=== PATIENT | female | born 1950 | race Caucasian/White ===

== ENCOUNTER → 2019-03-21 | Outpatient (CLI) | payer MEDICARE, OTHER | LOC: WI 13:29 | PROVIDERS: ATTEND Family Medicine | DX: Z12.31 Encounter for screening mammogram for malignant neoplasm of breast (principal) | CPT/HCPCS: 77063; 77067 ==

== ENCOUNTER → 2019-08-10 | Outpatient (CLI) | payer MEDICARE, OTHER ==
--- NOTE | 2019-08-10 14:19 | RADIOLOGY REPORT (SQ) ---
EXAM DESCRIPTION: SHOULDER LEFT 2 OR MORE VIEWS IMAGES COMPLETED DATE/TIME: 08/10/2019 2:08 pm REASON FOR STUDY: PAIN IN LEFT SHOULDER M25.512 PAIN IN LEFT SHOULDER COMPARISON: None. NUMBER OF VIEWS: Three views. TECHNIQUE: Internal rotation, external rotation, and Y view images acquired of the left shoulder. LIMITATIONS: None. FINDINGS: MINERALIZATION: Normal. BONES: No acute fracture. No worrisome bone lesions. JOINTS: No dislocation. VISUALIZED LUNGS AND RIBS: No pneumothorax. No rib fracture. SOFT TISSUES: No radiopaque foreign body. OTHER: No other significant finding. IMPRESSION: NEGATIVE STUDY OF THE LEFT SHOULDER. NO RADIOGRAPHIC EVIDENCE OF ACUTE INJURY. TECHNICAL DOCUMENTATION: JOB ID: [id number] [email or web address] All Rights Reserved Reading location - IP/workstation name: [email or web address]
== END ==
LOC: OD 13:54
PROVIDERS: ATTEND Family Medicine
DX: M25.512 Pain in left shoulder (principal)

== ENCOUNTER 2019-08-15 09:28 | Emergency (ER) | payer MEDICARE, OTHER ==
[2019-08-15 10:29] LABS: ABSOLUTE EOSINOPHILS # (AUTO) 0.3 10^3/uL (0.0-0.6); ABSOLUTE LYMPHOCYTES (AUTO) 1.4 10^3/uL (0.5-4.7); ABSOLUTE MONOCYTES (AUTO) 0.4 10^3/uL (0.1-1.4); ABSOLUTE NEUT (AUTO) 2.5 10^3/uL (1.7-8.2); BASOPHILS % (AUTO) 0.7 % (0-2); EOSINOPHILS % (AUTO) 5.6 % (0-6); HEMATOCRIT 39.1 % (36.0-47.0); HEMOGLOBIN 13.2 g/dL (12.0-15.5); MEAN CORPUSCULAR HEMOGLOBIN 29.5 pg (27.0-33.4); MEAN CORPUSCULAR HGB CONC 33.8 g/dL (32.0-36.0); MEAN CORPUSCULAR VOLUME 87 fl (80-97); MONOCYTES % (AUTO) 9.3 % (3-13); PLATELET COUNT 205 10^3/uL (150-450); RED BLOOD COUNT 4.49 10^6/uL (3.72-5.28); RED CELL DISTRIBUTION WIDTH 13.2 % (11.5-14.0); SEGMENTED NEUTROPHILS % (AUTO) 54.4 % (42-78); TOTAL CELLS COUNTED % (AUTO) 100 %; WHITE BLOOD COUNT 4.6 10^3/uL (4.0-10.5)
[2019-08-15 10:42] LABS: ALBUMIN 3.6 g/dL (3.5-5.0); ALKALINE PHOSPHATASE 148 U/L (38-126); ASPARTATE AMINO TRANSFERASE 36 U/L (14-36); BILIRUBIN,TOTAL 0.9 mg/dL (0.2-1.3); BLOOD UREA NITROGEN 10 mg/dL (7-20); CALCIUM 8.6 mg/dL (8.4-10.2); CHLORIDE 106 mmol/L (98-107); CREATINE KINASE 70 U/L (30-135); GLUCOSE 95 mg/dL (75-110); POTASSIUM 4.3 mmol/L (3.6-5.0); TOTAL PROTEIN 6.1 g/dL (6.3-8.2)
[2019-08-15 10:47] LABS: CARBON DIOXIDE 29 mmol/L (22-30)
[2019-08-15 10:48] LABS: ANION GAP 3 (5-19)
[2019-08-15 10:51] LABS: CREATINE KINASE MB 0.74 ng/mL (<4.55)
[2019-08-15 10:56] LABS: TROPONIN I < 0.012 ng/mL
--- NOTE | 2019-08-15 11:21 | ER Document Report ---
Entered by ETHEL DELATORRE SCRIBE 08/15/19 1021 Acting as scribe for:URIEL ARIZA MD ED General - General Chief Complaint: Chest Pain Stated Complaint: BACK PAIN Time Seen by Provider: 08/15/19 10:04 Primary Care Provider: ASHLEIGH MARCIAL MD [Primary Care Provider] - Follow up as needed Mode of Arrival: Ambulatory Information source: Patient Notes: This 69-year-old female patient presents to the emergency department today with complaints of upper back pain. Patient describes her pain as feeling as if there is a "vice global expansion sales director" around her shoulders and chest. Patient states that she walked her dog at about 8:00 AM this morning and when she got home she felt like she "could not hold her body up, there was no strength left in my trunk". Patient states that she has had symptoms similar to this in the past but mentions "it was not as intense, but I feel unwell, something is wrong but I do not know what". Patient reports that she recently had a large blood panel done at her primary care physician's office and the only abnormality was her chronically elevated alkaline phosphatase. TRAVEL OUTSIDE OF THE [place] IN LAST 30 DAYS: No - Related Data Allergies/Adverse Reactions: vancomycin Allergy (Verified 08/15/19 09:43) Home Medications: andthryroid Past Medical History - General Information source: Patient - Social History Smoking Status: Former Smoker - quit in 1985 Cigarette use (# per day): No Frequency of alcohol use: None Drug Abuse: None Lives with: Family Family History: Reviewed & Not Pertinent Patient has homicidal ideation: No Endocrine Medical History: Reports: Hx Hypothyroidism Past Surgical History: Reports: Hx Gastric Bypass Surgery - Alexis-en-Y, Hx Orthopedic Surgery - Left ankle, left knee Review of Systems - Review of Systems Constitutional: No symptoms reported EENT: No symptoms reported Cardiovascular: No symptoms reported Respiratory: No symptoms reported Gastrointestinal: No symptoms reported Genitourinary: No symptoms reported Female Genitourinary: No symptoms reported Musculoskeletal: See HPI, Back pain, Muscle pain, Muscle stiffness Skin: No symptoms reported Hematologic/Lymphatic: No symptoms reported Neurological/Psychological: See HPI, Depression - appears to be quite depressed -: Yes All other systems reviewed and negative Physical Exam - Vital signs Vitals: Temp 98.8 F 08/15/19 09:42 - Notes Notes: Physical Exam: General: Alert, appears well. HEENT: Normocephalic. Atraumatic. PERRL. Extraocular movements intact. Oropharynx clear. Neck: Supple. Non-tender. Respiratory: No respiratory distress. Clear and equal breath sounds bilaterally. Cardiovascular: Regular rate and rhythm. Abdominal: Normal Inspection. Non-tender. No distension. Normal Bowel Sounds. Back: Trapezius and medial scapular muscles are tender to palpation. Extremities: Moves all four extremities. Upper extremities: Normal inspection. Normal ROM. Lower extremities: Normal inspection. No edema. Normal ROM. Neurological: Normal cognition. AAOx4. Normal speech. Psychological: Seems to be quite depressed Skin: Warm. Dry. Normal color. Course - Re-evaluation Re-evalutation: 08/15/19 11:47 The patient had a left shoulder x-ray on 08/10/2019 which was normal. That x-ray did show the left lung all but the base area. It did show the complete medi astinum and part of the right lung. There were no abnormalities noted in the cardiopulmonary regions that were seen on the x-ray. The patient reports that she did have a lab panel done in the last couple weeks that showed normal thyroid function tests, and the rest of the Chem-12 was completely normal except for a chronically slightly elevated alkaline phosphatase. She did state that her vitamin B12 was elevated, but she does take multiple supplements including vitamin B12. The d-dimer was undetectable. The CBC was unremarkable. The physical exam reproduces the pain she complained of. The patient does seem somewhat depressed and anxious about her health. - Vital Signs Vital signs: Temp Pulse Resp BP Pulse Ox 98.8 F 14 120/62 99 08/15/19 09:53 08/15/19 11:01 08/15/19 11:01 08/15/19 11:01 - Laboratory Result Diagrams: 08/15/19 09:40 08/15/19 09:40 Laboratory results interpreted by me: 08/15/19 09:40 Anion Gap 3 L Alkaline Phosphatase 148 H Total Protein 6.1 L - EKG Interpretation by Ca EKG shows normal: Sinus rhythm, Patterson, Intervals, QRS Complexes, ST-T Waves Rate: Normal - 61 Rhythm: NSR Patterson/QRS: Left axis deviation P Waves: LAE When compared to previous EKG there are: Previous EKG unavailable Discharge - Discharge Clinical Impression: Pain of both scapulas, Chest wall pain, Weakness, Malaise and fatigue Condition: Stable Disposition: HOME, SELF-CARE Additional Instructions: Malaise: Malaise is a general feeling of ill health, fatigue, and lack of energy. It is a symptom, not a specific disease diagnosis. Your evaluation today has not shown the exact reason you feel this way. But we find no evidence of a serious problem. Malaise can be a symptom of many different health conditions. It can be due to depression or chronic anxiety. Difficulty sleeping, too much exercise ("over- training syndrome"), hormone changes, dieting, viral infections, inflammatory conditions, and metabolic problems can all cause malaise. Usually malaise goes away within a few days. If it does not, we order blood blood tests to look for a cause. Eat a good diet with plenty of fluids. Get enough rest. Avoid excess stimulants; if you drink coffee or tea regularly, take only your usual amount. Avoid sedating medication such as antihistamines. Physical activity should be moderate. Call the doctor or return if you have increasing fever, abdominal pain, severe headache, joint pain, leg swelling, shortness of breath, or any other significant change in your health. Myalagia (Muscle Pain): Myalgia is pain in the muscles. We use the word myalgia to describe muscle pain where there's no history of injury, and no known muscle disease. Myalgias can be a symptom of an acute illness, such as influenza, hepatitis, or any viral illness, especially with fever. Sometimes the muscle pain comes before any other symptoms. Myalgia can also be an early symptom of inflammatory muscle disease, such as lupus. If myalgia is accompanied by an acute illness that explains the muscle pain, then no further testing needs to be done. When there's no clear reason for the pain, tests may be done to see if there's an inflammatory or other disease of the muscles. The usual treatment for myalgias is anti-inflammatory medication, such as ibuprofen. Muscle aches may be soothed with a heating pad or hot compress. If muscles remain painful for more than a few days, you'll need testing and followup. Return if a muscle becomes swollen, red, or severely painful. The muscles in your upper back, shoulders, and anterior chest were tender on exam. Laboratory evaluation does not show an explanation for this muscle pain, or your generalized feeling of unwell with fatigue and weakness. Your muscle enzyme levels are normal, they would go up if muscles were being injured. Your cardiac muscle enzymes were normal, they would go up if there were injury to the heart muscle. A D-dimer test was undetectable, this would go up with injuries to the large blood vessels in your chest or with any other serious inflammatory process. Your white blood cell count was completely normal with no suggestion of an infectious process. You should rest while you are feeling weak and not put yourself in a position where you could fall and be injured. Follow-up with your doctor this week for recheck. RETURN TO THE EMERGENCY ROOM IF ANY NEW OR WORSENING SYMPTOMS. Referrals: ASHLEIGH MARCIAL MD [Primary Care Provider] - Follow up as needed I personally performed the services described in the documentation, reviewed and edited the documentation which was dictated to the scribe in my presence, and it accurately records my words and actions.
[2019-08-15 12:06] VITALS: BP 127/67
--- NOTE | 2019-08-15 13:11 | EKG REPORT ---
SEVERITY:- ABNORMAL ECG - SINUS RHYTHM PROBABLE LEFT ATRIAL ABNORMALITY BORDERLINE LEFT AXIS DEVIATION CONSIDER ANTEROSEPTAL INFARCT : Confirmed by: Eduardo Hung MD 15-Aug-2019 13:10:34
== END 2019-08-15 12:14 | disposition home or self-care (01) ==
LOC: ER 09:28
DX: M54.6 Pain in thoracic spine (principal); R07.89 Other chest pain; R53.1 Weakness; R53.81 Other malaise; E03.9 Hypothyroidism, unspecified; Z88.3 Allergy status to other anti-infective agents; Z98.84 Bariatric surgery status
CPT/HCPCS: 36415; 80053; 82550; 82553; 84484; 85025; 85379; 93005; 93010; 99284